=== PATIENT | female | born 1955 | race Caucasian/White ===

== ENCOUNTER → 2016-03-20 | Outpatient (CLI) | payer OTHER ==
[~2016-03-20] MED LIST: GADOBUTROL 10 ML VIAL IVP ONE
--- NOTE | 2016-03-20 16:01 | MR ---
MRI of the Brain (Without and With Contrast) at 1450 hours Clinical Indication: Severe headache, previous right parietal-occipital oligodendroglioma resection i n 1999. Comparison: MRI June 2015. Technique: T1-weighted images were acquired axially and sagittally from the foramen magnum to the ve rtex. Axial fast inversion recovery, fast T2-weighted, and diffusion-weighted axial images were obta ined without contrast. Postcontrast axial , coronal and sagittal T1-weighted images with the uneventf ul intravenous administration of 6 mL Gadavist contrast. Findings: Right parietal craniotomy and resection encephalomalacia measuring approximately 3 x 2 cm, unchanged since the previous study. No new evidence of nodular enhancement or recurrent tumor. No ne w intra-axial enhancing lesions in the cerebral hemispheres, brainstem, or cerebellar hemispheres. No abnormal leptomeningeal enhancement. No thrombosis of the superior sagittal sinus. No sinusitis. Thr oughout the white matter of bilateral cerebral hemispheres, there are multiple predominantly subcenti meter nonspecific hyperintense T2/FLAIR signal abnormalities without hemorrhage or mass effect. The ventricles, cisterns, and sulci are otherwise normal without atrophy, hydrocephalus, midline satnam ft, herniation, or epidural/subdural hematomas. No intracranial hemorrhage or masses. Diffusion-weigh mayco images demonstrate no acute infarct. Cerebellar tonsils are in normal position. Pituitary gland i s normal in size. Normal signal flow-void in the superior sagittal sinus, basilar artery, and bilater al internal carotid arteries indicating patency. Postcontrast images demonstrate no enhancing lesions or abnormal leptomeningeal enhancement. Paranasal sinuses and mastoid air cells are clear. Impression: 1. Previous right parietal tumor resection without recurrent or residual oligodendroglioma. 2. No new enhancing lesions. 3. No acute infarct, acute hemorrhage, hydrocephalus or mass effect. 4. No sinusitis or superior sagittal sinus thrombosis. 5. A few nonspecific hyperintense T2/FLAIR signal abnormalities in the white matter of bilateral cere bral hemispheres. Differential diagnosis includes mild microvascular ischemic gliosis, migraine-relat ed sequela, or less likely atypical demyelinating disease, or postinfectious/post inflammatory sequel a. Findings and recommendations discussed with Mane Coates PA-C at 1545 hours today.
== END ==
LOC: FIMAGING 14:10
PROVIDERS: ATTEND Physician Assistant Surgical
DX: R51 Headache (principal); Z85.841 Personal history of malignant neoplasm of brain; Z98.890 Other specified postprocedural states
CPT/HCPCS: A9585

== ENCOUNTER → 2017-02-25 | Outpatient (CLI) | payer OTHER | LOC: FIMAGING 08:43 | PROVIDERS: ATTEND Obstetrics & Gynecology Gynecology | DX: Z12.31 Encounter for screening mammogram for malignant neoplasm of breast (principal) ==

== ENCOUNTER → 2017-03-20 | Outpatient (CLI) | payer OTHER | LOC: FIMAGING 10:06 | PROVIDERS: ATTEND Physician Assistant Surgical | DX: Z08 Encounter for follow-up examination after completed treatment for malignant neoplasm (principal); Z86.011 Personal history of benign neoplasm of the brain | CPT/HCPCS: A9585 ==

== ENCOUNTER → 2017-04-15 | Outpatient (CLI) | payer OTHER | LOC: FIMAGING 08:58 | PROVIDERS: ATTEND Physician Assistant Medical | DX: Z13.820 Encounter for screening for osteoporosis (principal); M85.89 Other specified disorders of bone density and structure, multiple sites ==

== ENCOUNTER → 2018-03-17 | Outpatient (CLI) | payer OTHER | LOC: FIMAGING 08:20 | PROVIDERS: ATTEND Obstetrics & Gynecology Gynecology | DX: Z12.31 Encounter for screening mammogram for malignant neoplasm of breast (principal) ==